=== PATIENT | female | born 1995 | race Caucasian/White ===

== ENCOUNTER 2017-07-23 12:24 | Day surgery (SDC) | payer OTHER ==
[2017-07-23 13:10] VITALS: BMI 35.6
--- NOTE | 2017-07-23 19:04 | PRG ---
DATE OF SERVICE: 07/23/2017 OB ER ENCOUNTER PRIMARY OB: Dr. Ana Betancur. CHIEF COMPLAINT: Rectal pain. HISTORY OF PRESENT ILLNESS: The patient is a 22-year-old G2, P1 female with an intrauterine pregnan cy at 29 weeks and 5 days, who is reporting a several day history of isolated and intermittent recta l pain that she says it is like a shooting pain that will last very seconds to minutes and will go a way. The patient also reports some isolated numbness in her right upper thigh. She denies any uter ine contractions or vaginal bleeding or leakage of fluid. The patient denies constipation or diarrh ea. She denies any recent illness or any medical problems associated with GI tract. PAST MEDICAL HISTORY: Noncontributory. PAST SURGICAL HISTORY: Noncontributory. ALLERGIES: No known drug allergies. MEDICATIONS: vitamins. OBSTETRIC HISTORY: She has had 1 term delivery with preeclampsia. SOCIAL HISTORY: Denies drug, alcohol or tobacco use. MEDICATIONS: vitamins. REVIEW OF SYSTEMS: Patient denies any recent illness, fever, fall, headache, chest pain, shortness of breath, nausea, vomiting, diarrhea, constipation, hip problems or knee problems. She has had madisyn e lower back pain in her sacral area that is presently gone. Denies any difficulty with her bowel m ovements. Denies bleeding or leakage of fluid. Denies any urinary urgency or frequency. PHYSICAL EXAMINATION: VITAL SIGNS: Blood pressure 118/63, heart rate of 96, respiratory rate of 16, and satting 95% on ro om air, temperature 98.5. GENERAL: She appears to be in no acute distress. She is alert and oriented, and cooperative and pl easant to interact with. HEENT: Head is normocephalic, atraumatic. LUNGS: Clear to auscultation bilaterally. HEART: Regular rate and rhythm. ABDOMEN: Soft and gravid and nontender to palpation. EXTREMITIES: Nontender, nonedematous. She has no CVA tenderness, no sacral tenderness to palpation . GENITOURINARY: On speculum exam, patient has a normal appearing discharge. Cervix is visually clos ed. On digital exam, there is no pain along the rectovaginal side of the vagina nor laterally or an terior to the bladder. A brief rectal exam also could not elicit this pain. There are no palpable masses on inspection. heart tracing performed for possible labor. Baseline is noted to be in the 130s with moderate long-term variability, positive accelerations, no decelerations, and no uterine contraction s visible on tocometer. ASSESSMENT AND PLAN: The patient is a 22-year-old G2, P1 female with an intrauterine at 2 9 weeks and 5 days with some isolated rectal pain that does not seem to be present nor can be elicit ed on today's exam. The patient has been given reassurance, she has been asked to keep a diary of t hese symptoms in the future and to try to identify any associated conditions and then to the share t his with her primary OB. The patient has been discharged to home.
== END 2017-07-23 13:30 | disposition home or self-care (01) ==
LOC: L&D/OP 12:24
PROVIDERS: ATTEND Student in an Organized Health Care Education/Training Program
DX: O99.89 Other specified diseases and conditions complicating pregnancy, childbirth and the puerperium (principal); K62.89 Other specified diseases of anus and rectum; Z3A.29 29 weeks gestation of pregnancy; Z79.899 Other long term (current) drug therapy; Z91.048 Other nonmedicinal substance allergy status

== ENCOUNTER 2017-09-14 20:00 | Inpatient (IN) | payer OTHER ==
[2017-09-14] MEDS ORDERED: Promethazine HCl 25 MG/ML VIAL IM PRN (21:28)
[2017-09-14] MEDS ORDERED: Zolpidem Tartrate 5 MG TAB PO PRN (21:28)
[2017-09-14] MEDS ORDERED: LR / Pitocin 40 units/1000 ml 1,000 ML IV PRN (21:28)
[2017-09-14] MEDS ORDERED: Carboprost 250 MCG/ML AMP IM PRN (21:28)
[2017-09-14] MEDS ORDERED: Misoprostol 200 MCG TAB PR PRN (21:28)
[2017-09-14] MEDS ORDERED: Acetaminophen 500 MG TAB PO PRN (21:28)
[2017-09-14] MEDS ORDERED: Lidocaine 1% (PF) 30 ML VIAL SC PRN (21:28)
[2017-09-14] MEDS ORDERED: Ondansetron HCl/PF 4 MG/2 ML Vial IVP PRN (21:28)
[2017-09-14] MEDS ORDERED: HYDROcodone/Acetaminophen 5/325 mg Tablet PO PRN (21:28)
[2017-09-14] MEDS ORDERED: Ibuprofen 800 MG TAB PO PRN (21:28)
[2017-09-14] MEDS ORDERED: Diphenoxylate HCl/Atropine Tablet PO PRN (21:28)
[2017-09-14] MEDS ORDERED: LR 500 ML/Oxytocin 10 units 500 ML IV SCH (21:28)
[2017-09-14 21:35] VITALS: BMI 36.6
[2017-09-14] MEDS: Lactated Ringer's 1,000 ML IV SCH (22:24)
[2017-09-14] MEDS: Misoprostol 100 MCG TAB VAG SCH (22:40)
[2017-09-14 23:09] LABS: Hematocrit 32.8 % (36.0-47.0); Red Blood Cell (RBC) Count 3.91 mill/uL (4.20-5.40); White Blood Cell (WBC) Count 8.7 thou/uL (4.8-10.8)
[2017-09-15 00:03] LABS: ALT (SGPT) 7 U/L (8-55); AST (SGOT) 12 U/L (5-34); Alkaline Phosphatase 201 U/L (40-150); Anion Gap 12 mmol/L (10-20); BUN (Urea Nitrogen) 7 mg/dL (7.0-18.7); Bilirubin, Total 0.2 mg/dL (0.2-1.2); Calc. Creatinine Clearance 190 mL/min (70-130); Calcium 9.7 mg/dL (7.8-10.44); Carbon Dioxide 24 mmol/L (22-29); Chloride 105 mmol/L (98-107); Estimated GFR-MDRD Greater than 90; Globulin 3.1 g/dL (2.4-3.5); Protein, Total 6.6 g/dL (6.0-8.3)
[2017-09-15] MEDS ORDERED: Calcium Carbonate 500 MG ChewTAB PO SCH (02:30)
[2017-09-15] MEDS: Lactated Ringer's 1,000 ML IV SCH ×2 (05:45→07:41)
[2017-09-15] MEDS ORDERED: Fentanyl 4 mcg/Marc 0.1% Cadd 100 ML ONE (07:26)
--- NOTE | 2017-09-15 08:27 | PDOC.LDHP ---
Labor and Delivery H&P Chief complaint: scheduled induction (for CHTN) HPI: 22yo at 37w3d by LMP here for IOL 2/2 CHTN, not on meds. Pt has had mild range BPs in clinic and at home, no sx PIH and negative PIH labs. 24hr protein earlier in was wnl. Good FM. No LOF VB. Had 1 dose cytotec overnight. Current gestational age (weeks): 37 Due date: 10/03/17 Dating criteria: last menstrual period Grav: 2 Para: 1 OB History Details: h/o GHTN at 38w last Abnormal US findings: No Past Medical History: CHTN- dx based on mild range BPs prior to 20w this Current medications: pre- vitamins Previous surgical history: none Allergies/Adverse Reactions: Allergies Allergy/AdvReac Type Severity Reaction Status Date / Time adhesive Allergy Rash Verified 07/23/17 13:08 ADHESIVE TAPE Allergy Uncoded 07/23/17 13:08 Social history: none - Physical Exam Vital signs reviewed and normal: yes (BP wnl) General: NAD Heart: RRR Lungs: CTAB Abdomen: gravid Extremeties: no edema FHT: category 1 Newborn contractions every: q4-5min - Vaginal Exam cm dilated: 3 Effacement: 50% Station: -2 (arom clear) - OB Labs Blood type: O RH: positive Antibody Screen: negative HIV: negative RPR: negative HEPSAg: negative 1 hour GCT: negative GBS: negative Rubella: immune - Assessment L&D Assessment: medically indicated induction - Plan Plan: admit to L&D, labor augmentation if indicated, informed consent obtained, anesthesia consult for pain management -: PIH labs wnl, no sx PIH, UA neg for protein.
[2017-09-15] MEDS ORDERED: Fentanyl 100 MCG/2 ML VIAL ONE (08:59)
[2017-09-15] MEDS ORDERED: Ondansetron HCl/PF 4 MG/2 ML Vial IVP PRN ×2 (11:40→18:38)
[2017-09-15] MEDS ORDERED: Acetaminophen 325 MG TAB PO PRN (11:40)
[2017-09-15] MEDS ORDERED: Promethazine HCl 25 MG/ML VIAL IM PRN (11:40)
[2017-09-15] MEDS ORDERED: Naloxone HCl 0.4 mg/ml Vial IVP PRN ×2 (11:40)
[2017-09-15] MEDS ORDERED: Lactated Ringer's 500 ML IV PRN (11:40)
[2017-09-15] MEDS ORDERED: Eucerin (Mineral Oil/Petrolatum,White) 30 gm Jar TOP PRN (11:40)
[2017-09-15] MEDS ORDERED: diphenhydrAMINE 50 MG/ML VIAL IVP PRN (11:40)
[2017-09-15] MEDS ORDERED: ePHEDrine/0.9% NaCl/PF SYRINGE 50 mg/10 ml SLOW IVP PRN (11:40)
[2017-09-15] MEDS ORDERED: Fentanyl 4mcg/Marcaine 0.1% Cassette 100 ML EPIDURAL SCH (11:45)
[2017-09-15] MEDS ORDERED: Communication Order-Pharmacy FS SCH (11:45)
--- NOTE | 2017-09-15 13:11 | PDOC.LDPN ---
Labor & Delivery Progress Note - Subjective Subjective: comfortable (s/p epidural replacement after severe back pain following inital placement) - Objective Vital signs reviewed and normal: yes General: NAD Uterine fundus: non tender Dilation: 4 Effacement: 90% Station: -1 FHT: category 1 [place] contractions every: q3min - Assessment (1) Chronic hypertension complicating or reason for care during childbirth Code(s): O10.92 - UNSP PRE-EXISTING HYPERTENSION COMPLICATING CHILDBIRTH Current Visit: Yes Status: Acute Plan: pitocin for augmentation -: VSSAF BP wnl, no sx PIH FHT Cat 1 on 14mU/min pitocin Cont current care
[2017-09-15] MEDS ORDERED: Ampicillin 2 GM in Sodium Chloride 0.9% 100 ML IVPB SCH (14:45)
[2017-09-15] MEDS ORDERED: Gentamicin Sulfate 120 MG in Premix Bag 1 BAG IVPB SCH (14:45)
[2017-09-15] MEDS ORDERED: Ampicillin 2 GM, Syringe 5.2 ML in Sterile Water 14.8 ML SLOW IVP SCH (16:00)
--- NOTE | 2017-09-15 16:32 | PDOC.OPDEL ---
OB Operative/Delivery Note Delivery Dr/Surgeon: Pipe Assist: n/a Pre-Delivery Diagnosis: medically indicated induction Procedure/Post Delivery Dx: spontaneous vaginal delivery Weeks gestation: 37 Anesthesia: epidural - Findings A Sex: male - 1 min: 9 - 5 min: 9 - Additional Findings/Plan Placenta delivered: spontaneous Repaired Obstetrical Laceration: 1st degree (repaired with 2-0 vicryl for hemostasis) Estimated blood loss: 200 Compilations/Other Findings: Chorioamnionitis, based on maternal Tmax 100.3 and tachycardia, treated with 1 dose amp/gent. Post delivery plan: routine recovery
[2017-09-15] MEDS ORDERED: Milk Of Magnesia 30 ML UDCUP PO PRN (18:38)
[2017-09-15] MEDS ORDERED: diphenhydrAMINE 25 MG CAP PO PRN (18:38)
[2017-09-15] MEDS ORDERED: Lanolin Ointment 7 GM TUBE TOP PRN (18:38)
[2017-09-15] MEDS ORDERED: Preparation H Ointment 28 GM TUBE PR PRN (18:38)
[2017-09-15] MEDS ORDERED: HYDROcodone/Acetaminophen 5/325 mg Tablet PO PRN ×2 (18:38)
[2017-09-15] MEDS ORDERED: Benzocaine/Menthol 20-0.5% 60 ML CAN TOP PRN (18:38)
[2017-09-15] MEDS ORDERED: Bisacodyl 10 MG SUPP PR PRN (18:38)
[2017-09-15] MEDS ORDERED: LR / Pitocin 40 units/1000 ml 1,000 ML IV SCH (18:38)
[2017-09-15] MEDS ORDERED: Adacel (T-DAP) 0.5 ML VIAL IM ONE (19:15)
[2017-09-15] MEDS ORDERED: Bupivacaine 0.25% HCL 30 ML VIAL ONE (19:49)
[2017-09-15] MEDS ORDERED: Lidocaine 2% PF 10 ML AMP (For Epidural Use) ONE (19:49)
[2017-09-15] MEDS: Docusate (Surfak) 240 MG CAP PO SCH (21:08)
[2017-09-15] MEDS: Ibuprofen 800 MG TAB PO SCH (23:33)
[2017-09-15] MEDS: Misoprostol 100 MCG TAB VAG SCH ×2 (23:33→23:34)
[2017-09-16] MEDS: Ibuprofen 800 MG TAB PO SCH ×4 (00:36→21:44)
[2017-09-16 05:06] LABS: Hematocrit 29.8 % (36.0-47.0); Mean Platelet Volume 7.6 fL (7.4-10.4); Red Blood Cell (RBC) Count 3.54 mill/uL (4.20-5.40)
--- NOTE | 2017-09-16 09:11 | PDOC.PP ---
Post Progress Note Post Day #: 1 Subjective: Doing well. baby in room. PO intake tolerated: yes Flatus: yes Ambulation: yes Vital Signs (12 hours) Temp Pulse Resp BP 09/16/17 05:15 98.7 F 91 18 123/64 09/16/17 00:36 97.7 F 89 18 113/61 Weight Weight 194 lb - Physical Examination Cardiovascular: no m/r/g Abdominal: lochia, no distention Extremities: negative homans (B) Neurological: no gross focal deficits Psychiatric: A&Ox3, normal affect Result Diagrams: 09/16/17 04:30 09/14/17 22:24 Additional Labs: Post Labs Hep Bs Antigen Non-Reactive S/CO (NonReactive) 09/14/17 22:24 (1) Vaginal delivery Status: Acute (2) Chorioamnionitis Code(s): O41.1290 - CHORIOAMNIONITIS, UNSP TRIMESTER, NOT APPLICABLE OR UNSP Status: Acute - Assessment/Plan Day 1, doing well. Continue care for now. Likely home PPD2. Chorio history reviewed. Follow temps for now.
[2017-09-16] MEDS: Docusate (Surfak) 240 MG CAP PO SCH ×2 (09:35→21:44)
[2017-09-16] MEDS: Ferrous Sulfate 325 MG TAB PO SCH ×2 (09:35→17:37)
[2017-09-16] MEDS: Prenatal Vitamin 1 TAB PO SCH (09:35)
[2017-09-16] MEDS ORDERED: Sodium Chloride 0.9% 10 ML ONE (23:26)
--- NOTE | 2017-09-17 06:14 | PDOC.PP ---
Post Progress Note Post Day #: 1-2 Subjective: Doing well. No new complaints. PO intake tolerated: yes Flatus: yes Ambulation: yes Vital Signs (12 hours) Temp Pulse Resp BP 09/16/17 19:50 98.2 F 83 18 123/65 Weight Weight 194 lb - Physical Examination General: NAD Cardiovascular: no m/r/g Respiratory: non-labored breathing Abdominal: + bowel sounds, no distention Extremities: negative homans (B) Neurological: no gross focal deficits Psychiatric: A&Ox3, normal affect Result Diagrams: 09/16/17 04:30 09/14/17 22:24 Additional Labs: Post Labs Hep Bs Antigen Non-Reactive S/CO (NonReactive) 09/14/17 22:24 (1) Vaginal delivery Status: Acute (2) Chorioamnionitis Code(s): O41.1290 - CHORIOAMNIONITIS, UNSP TRIMESTER, NOT APPLICABLE OR UNSP Status: Acute Qualifiers: Fetus number: single or unspecified fetus - Assessment/Plan 1. Day 2..clear for discharge. 2. Afebrile and normotensive 3. Home with Motrin prn 4. Follow up in 4 weeks
[2017-09-17] MEDS: Ibuprofen 800 MG TAB PO SCH ×2 (06:16→15:48)
--- NOTE | 2017-09-17 06:16 | PDOC.EVN ---
Event Note - Event Note Event Note: DISCHARGE Summary: 22 year old s/p IOL for CHTN not on meds. Patient underwent spontaneous vaginal delivery by Dr Betancur 09/15/2017 without complication. Was DX with chorio intrapartum and received antibiotic therapy. HCT 29.8. Routine course. Home with Motrin prn. Follow up 4 weeks .
[2017-09-17] MEDS: Docusate (Surfak) 240 MG CAP PO SCH (08:01)
[2017-09-17] MEDS: Prenatal Vitamin 1 TAB PO SCH (08:01)
[2017-09-17] MEDS: Ferrous Sulfate 325 MG TAB PO SCH ×2 (08:01→16:52)
[2017-09-17] MEDS ORDERED: Fentanyl 100 MCG/2 ML VIAL ONE (15:14)
[2017-09-17 16:17] VITALS: BP 133/62; TEMP 97.8
== END 2017-09-17 18:20 | disposition home or self-care (01) | DRG 774 ==
LOC: L&D 21:11 → 3SW 09-15 18:24
PROVIDERS: ADMIT Student in an Organized Health Care Education/Training Program; ATTEND Student in an Organized Health Care Education/Training Program
PROC: 10E0XZZ Delivery of Products of Conception, External Approach (ICD-10-PCS; principal; 2017-09-15)
PROC: 0HQ9XZZ Repair Perineum Skin, External Approach (ICD-10-PCS; 2017-09-15)
PROC: 4A0HXCZ Measurement of Products of Conception, Cardiac Rate, External Approach (ICD-10-PCS; 2017-09-15)
DX: O10.92 Unspecified pre-existing hypertension complicating childbirth (principal); O41.1230 Chorioamnionitis, third trimester, not applicable or unspecified; O70.0 First degree perineal laceration during delivery; Z3A.37 37 weeks gestation of pregnancy; Z37.0 Single live birth
CPT/HCPCS: 36415; 80053; 81003; 85027; 86780; 87340; A4216; J0290; J0595; J1580; J2001; J3010; J7120; S0020

== ENCOUNTER 2018-04-28 23:03 | Emergency (ER) | payer OTHER | END 2018-04-28 23:22 | disposition left against medical advice (07) | LOC: ERS 23:03 | DX: Z53.21 Procedure and treatment not carried out due to patient leaving prior to being seen by health care provider (principal) ==

== ENCOUNTER 2018-04-29 02:45 | Observation (INO) | payer OTHER ==
[2018-04-29] MEDS ORDERED: Bupivacaine/Epinephrine 0.25% 30 ML VIAL ONE (03:14)
[2018-04-29 03:27] VITALS: BMI 35.9
[2018-04-29] MEDS ORDERED: Fentanyl 100 MCG/2 ML VIAL ONE ×3 (04:04→05:33)
[2018-04-29] MEDS ORDERED: hydrALAZINE 20 MG/ML VIAL SLOW IVP PRN (04:05)
[2018-04-29] MEDS ORDERED: Promethazine HCl 25 MG/ML VIAL IM PRN ×2 (04:05→05:10)
[2018-04-29] MEDS ORDERED: Dextrose 5% in Water 1,000 ML IV PRN (04:05)
[2018-04-29] MEDS ORDERED: Dextrose 50% Abboject 50 ML SYRINGE SLOW IVP PRN (04:05)
[2018-04-29] MEDS ORDERED: Ondansetron HCl/PF 4 MG/2 ML Vial IVP PRN ×2 (04:05→05:10)
[2018-04-29] MEDS ORDERED: Ibuprofen 800 MG TAB PO PRN (04:08)
[2018-04-29] MEDS ORDERED: traMADol HCl 50 MG TAB PO PRN ×2 (04:08)
[2018-04-29] MEDS ORDERED: SUGAMMADEX SODIUM 200 MG/2 ML VIAL ONE (04:59)
[2018-04-29] MEDS ORDERED: Promethazine HCl 25 MG/ML VIAL SLOW IVP PRN (05:10)
--- NOTE | 2018-04-29 05:23 | HP ---
DATE OF ADMISSION: 04/29/2018 HISTORY OF PRESENT ILLNESS: This is a 23-year-old woman who was in her usual state of heal th up until approximately 0500 hours yesterday when she experienced insidious onset right flank to [facility] lower quadrant abdominal pain. She reported the pain as 8/10 and crampy. Initially, she thought it was the menstrual cramps, pain would not resolve. This was associated with some nausea, but no e mesis. The patient presented to freestanding emergency room last night. Workup at the time included CT scan of the abdomen and pelvis, which revealed dilated appendix with periappendiceal fat strandin g. The patient was transferred to [facility] for surgical management. At the time of my evaluat ion, she now reports the pain at 6/10. She received intravenous analgesics prior to transfer. She d enies any dyspnea, syncope, or nausea. She denies any fevers or chills. She denies any change in he r bowel habits. PAST MEDICAL HISTORY: She denies any previous medical problems. PAST SURGICAL HISTORY: The patient denies any previous surgeries except for tonsillectomy and adenoi dectomy at age 7. SOCIAL HISTORY: She is . She is a G2, P2. Her younger child is 7-month-old. 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 She denies any cigarette smoking, letitia ol or illicit drug abuse. FAMILY HISTORY: She denies any family history of diabetes mellitus, heart disease, essential hyperte nsion, or cancer. PREHOSPITAL MEDICATIONS: None. ALLERGIES: The patient denies any known drug allergies. REVIEW OF SYSTEMS: Ten-point review of system is essentially unremarkable except for as stated in pa st medical history and chief complaint. PHYSICAL EXAMINATION: GENERAL: This reveals 23-year-old normally developed woman who is otherwise coherent and interactive and appears stated age. The patient is alert and oriented x3. She appears to be in no acute distre ss at the time of my evaluation. VITAL SIGNS: Today includes blood pressure 124/74, pulse is 86, respiratory rate is 16, temperature is 98.7 degrees Fahrenheit, and oxygen saturation 95% on room air. HEENT: Reveals normocephalic and atraumatic. Pupils are equal, round, and reactive to light and acc ommodation. Extraocular muscles are intact bilaterally. No sclerae icterus is present. Oral mucosa is pink and moist. No lesions are noted. NECK: Supple. No palpable lymphadenopathy or thyromegaly present. HEART: Reveals regular rate and rhythm, no murmurs or gallops auscultated. LUNGS: Clear to auscultation bilaterally. Her breathing regular and unlabored. ABDOMEN: Soft, nondistended. She has right lower quadrant tenderness to palpation with a positive R ovsing sign. Liver and spleen are otherwise nonpalpable below costal margins. EXTREMITIES: Reveals 2+ radial and pedal pulses bilaterally. No ankle edema is present. NEUROLOGIC: Reveals no focal deficits present. PERTINENT LABORATORY FINDINGS: Includes the following labs from [facility] including metabolic profile: Sodium 136, potassium is 3.4, chloride is 103, bicarbonate 19, BUN is 9, creatinine is 0.6, and glu cose is 119. Hemoglobin and hematocrit noted at 12 and 36 respectively. I have personally reviewed the accompanying CT scan of the abdomen and pelvis from [facility] which is remarkable for dilated appen ela with periappendiceal fat stranding and small free fluid. No pneumoperitoneum is present. IMPRESSION: Acute appendicitis. PLAN: Laparoscopic appendectomy. The above findings and plan have been discussed with the patient a nd her at bedside. I have advised the patient of the risks and benefits of the proposed surg amadeo. Risks include, but not limited to bleeding, infection, injury to bowel or surrounding structure s. The patient indicates understanding of this information. I have answered her questions. The [facility] has granted consent for this admission and surgical intervention.
--- NOTE | 2018-04-29 08:13 | OP ---
DATE OF OPERATION: 04/29/2018 PREOPERATIVE DIAGNOSIS: Acute appendicitis. POSTOPERATIVE DIAGNOSIS: Acute retrocecal appendicitis. OPERATION PERFORMED: Laparoscopic appendectomy. SURGEON: Roque Rosado D.O. ANESTHESIA: General endotracheal. ESTIMATED BLOOD LOSS: 5 mL. FLUIDS GIVEN: 1500 mL crystalloids. SPONGE AND INSTRUMENT COUNT: Certified as correct x2. COMPLICATIONS: None apparent at the time of operation. INDICATIONS FOR OPERATION: This is a 23-year-old woman, who presented with a 24-hour history of righ t flank to right lower quadrant abdominal pain. Clinical and radiographic examination was consistent with acute appendicitis, for which patient was b rought to the operating room for appendectomy. Findings are consistent with suppurative, but nonperforated retrocecal appendix. DESCRIPTION OF OPERATION: Informed consent obtained from the patient, who was brought to the operati ng room and placed in supine position. Following general anesthesia, Harris catheter was inserted and placed bedside drain. Abdomen is sterilely prepped and draped in the usual fashion. Skin below the umbilicus was anesthetized with 1% lidocaine. A small curvilinear infraumbilical incision was made using an 11 scalpel. Umbilical stalk grasped with Paul's and elevated. Veress needle was inserted through the incision and placed in the peritoneal cavity through which the abdomen was insufflated w ith 3 liters of CO2 gas. Intraabdominal pressure noted at 3 mmHg. Following abdominal insufflation, Veress needle was removed and a 5-mm trocar introduced using the Visiport under laparoscopy. Laparo scopy confirmed proper placement of the port, no injuries to underlying structures. Additional lapar oscopy reveals the right lower quadrant obscured by omental adhesions. Under direct laparoscopy, a 5 -mm suprapubic and a 12-mm left lower quadrant ports were placed after the overlying skin was infiltr ated with 0.25% Marcaine with epinephrine and appropriate incisions made. Patient was placed in a Tr endelenburg position, rotated to her left. I then introduced a Prestige grasper from the left lower quadrant port site using this to bluntly take down omental adhesions to reveal a suppurative, but non perforated retrocecal appendix covered with some fibrinous exudates. Minimum serous fluid was evacua theresa from the deep pelvis. An Endo Coretta forceps was then introduced through the suprapubic port si te grasping the appendix, which was elevated. I then used a [place] dissector to create a rent thro ugh the mesoappendix at the base. Using Endo-KIAN with a blue load, appendix was divided at the appen dical cecal junction. Using a white load of the Endo-KIAN, the mesoappendix was also divided at the b ase with good hemostasis. Appendix is delivered off the abdominal cavity using an EndoCatch. Operat miko site was then irrigated with saline, noting good hemostasis in place. Finding no other pathology , laparoscopy was terminated. Fascia of the left lower quadrant port was closed using 0 Vicryl sutur e and Endo closure device under laparoscopy. The abdomen was desufflated and all ports and instruments removed and accounted for. All skin incisi ons were closed using 4-0 Monocryl suture in subcuticular fashion. Dermabond was applied over the in cisional closure. The patient tolerated the operation without any apparent complication and was returned to recovery ro in satisfactory condition.
[2018-04-29] MEDS ORDERED: Famotidine/PF 20 mg/2ml Vial SLOW IVP SCH (09:00)
[2018-04-29] MEDS ORDERED: Famotidine 20 MG TAB PO SCH (09:00)
[2018-04-29] MEDS: Lactated Ringer's 1,000 ML IV SCH ×2 (09:18→14:18)
[2018-04-29] MEDS ORDERED: Acetaminophen 500 MG TAB PO SCH (10:00)
[2018-04-29 12:12] VITALS: BP 99/60; TEMP 98.3
[2018-04-29] MEDS ORDERED: Succinylcholine Chloride 20 MG/ML 10 ml SYRINGE FS ONE (15:35)
[2018-04-29] MEDS ORDERED: PROPOFOL 200 MG/20 ML VIAL ONE (15:35)
[2018-04-29] MEDS ORDERED: Ketorolac Tromethamine 30 MG/ML VIAL ONE (15:35)
[2018-04-29] MEDS ORDERED: Ondansetron HCl/PF 4 MG/2 ML Vial ONE (15:35)
[2018-04-29] MEDS ORDERED: Glycopyrrolate 0.2 MG/ML 5 ML SYRINGE ONE (15:35)
[2018-04-29] MEDS ORDERED: Dexamethasone 20 MG/5 ML VIAL ONE (15:35)
[2018-04-30] MEDS ORDERED: Enoxaparin Sodium 40 MG/0.4 ML SYRINGE SC SCH (02:00)
--- NOTE | 2018-04-30 07:12 | DIS ---
DATE OF ADMISSION: 04/29/2018 DATE OF DISCHARGE: 04/29/2018 ADMITTING AND DISCHARGE PHYSICIAN: Dr. Roque Rosado ADMITTING DIAGNOSIS: Acute appendicitis. DISCHARGE DIAGNOSIS: Acute appendicitis. OPERATIONS PERFORMED: Laparoscopic appendectomy on 04/29/2018. HISTORY AND HOSPITAL COURSE: Ms. Andrade is a 23-year-old woman presented with abdominal pain. Clinic al radiographic examination was consistent with acute appendicitis for which the patient underwent an uneventful laparoscopic appendectomy. Postoperatively, the patient did well. She was ambulating wi th minimal difficulty and tolerating a diet. Pain was adequately controlled on oral analgesics. DISCHARGE INSTRUCTIONS: The patient was discharged home with the following instructions: 1. She follows up with me in Surgery Clinic in 2 weeks. 2. She was advised to avoid weightlifting in excess of 20 pounds until she has been released by me. 3. She may shower effective from 04/30/2018. 4. She is to avoid swimming or soaking herself in the bathtub until she has been released by me. 5. She is to call with any questions or problems including fever in excess of 101 degrees Fahrenheit , any abnormal drainage from the wound or intolerance to oral intake. 6. She is to resume all preadmission medications as prescribed by her primary care physicians. The patient indicates understanding of the information given and has expressed gratitude for the care and nurture her during the hospitalization and surgery.
[2018-05-01] MEDS ORDERED: Enoxaparin Sodium 40 MG/0.4 ML SYRINGE SC SCH (09:00)
== END 2018-04-29 14:42 | disposition home or self-care (01) ==
LOC: SJJU 02:47
PROVIDERS: ADMIT Surgery; ATTEND Surgery
PROC: 0DTJ4ZZ Resection of Appendix, Percutaneous Endoscopic Approach (ICD-10-PCS; principal; 2018-04-29)
DX: K35.80 Unspecified acute appendicitis (principal)
CPT/HCPCS: 88304; G0378; J0131; J1100; J1885; J2405; J2704; J3010

== ENCOUNTER 2020-11-10 13:42 | Outpatient (CLI) | payer OTHER ==
--- NOTE | 2020-11-10 14:05 | RAD ---
XR Chest Pa Lat STANDARD HISTORY: Cough.POSITIVE FOR COVID . COMPARISON: None FINDINGS: The heart size is normal. The lungs are well expanded without focal areas of consolidation, pneumothorax or pleural effusions. IMPRESSION: No radiographic evidence of acute cardiopulmonary process. Plain radiographs can be falsely negative in the setting of viral pneumonias.
== END 2020-11-10 13:43 | disposition home or self-care (01) ==
LOC: SCSRAD 13:42
PROVIDERS: ATTEND Family Medicine
DX: R05 Cough (principal)
CPT/HCPCS: 71046